=== PATIENT | female | born 1995 | race Caucasian/White ===

== ENCOUNTER 2016-05-03 16:01 | Emergency (ER) | payer BC, OTHER ==
[2016-05-03 16:25] VITALS: BP 134/92; PULSE 78; RESP 16; TEMP 98.1; O2SAT 97
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
== END 2016-05-03 17:28 | disposition home or self-care (01) ==
DX: S09.90XA Unspecified injury of head, initial encounter (principal); V49.50XA Passenger injured in collision with unspecified motor vehicles in traffic accident, initial encounter; Y92.410 Unspecified street and highway as the place of occurrence of the external cause